=== PATIENT | female | born 1950 | race Caucasian/White ===

== ENCOUNTER 2017-07-09 05:02 | Observation (INO) | payer MEDICARE, MEDICAID ==
[~2017-07-09] VITALS: Ht 177.8 cm; Wt 81.8 kg
[2017-07-09] VITALS (16 sets, daily range): BP systolic 91–171; BP diastolic 31–92
[~2017-07-09 05:02] MED LIST: ALBU8.5H8 INH; ATOR20TA66 PO; GABA-532 PO; LACT-28 PO; MORP30CA16 PO; PANT-47 PO; PER10325T PO; SERT100T10 PO; SPIIN INH
[2017-07-09] MEDS ORDERED: aspirin 81mg tab.chew PO ONE (05:05)
[2017-07-09] MEDS ORDERED: morphine 4 MG/ML inj SYRINge IV ONE (05:15)
[2017-07-09] MEDS ORDERED: ondansetron/PF 4mg/2ml inj IV ONE ×2 (05:15→06:35)
[2017-07-09 05:29] LABS: BASOPHILS % (AUTO) 0.4 % (0-1); EOSINOPHILS # (AUTO) 0.2 X10'3 (0-0.9); EOSINOPHILS % (AUTO) 2.1 % (0-6); HEMATOCRIT 36.8 % (35.0-45.0); HEMOGLOBIN 12.7 g/dl (12.0-16.0); LYMPHOCYTES # (AUTO) 3.2 X10'3 (1.1-4.8); MEAN CORPUSCULAR HGB CONC 34.6 % (33.0-36.5); MEAN CORPUSCULAR VOLUME 86.8 FL (78-98); MEAN PLATELET VOLUME 8.4 FL (7.4-10.4); MONOCYTES # (AUTO) 0.7 X10'3 (0-0.9); MONOCYTES % (AUTO) 7.8 % (2-12); NEUTROPHILS # (AUTO) 4.5 X10'3 (1.8-7.7); NEUTROPHILS % (AUTO) 52.7 % (42-75); PLATELET COUNT 226 X10'3 (140-440); RED BLOOD COUNT 4.24 X10'6 (4.20-5.60); WHITE BLOOD COUNT 8.6 X10'3 (4.5-11.0)
[2017-07-09 05:42] LABS: PARTIAL THROMBOPLASTIN TIME 28 SECONDS (22-32); PROTHROMBIN TIME 10.3 SECONDS (9.0-12.0)
[2017-07-09 05:52] LABS: ALANINE AMINOTRANSFERASE 22 U/L (12-78); ALBUMIN 4.1 G/DL (3.4-5.0); ALBUMIN/GLOBULIN RATIO 1.1 (1.1-1.5); ALKALINE PHOSPHATASE 88 IU/L (46-116); ANION GAP 15 (8-16); ASPARTATE AMINO TRANSFERASE 16 U/L (10-37); BILIRUBIN,TOTAL 0.3 MG/DL (0.1-1.0); BLOOD UREA NITROGEN 16 MG/DL (7-18); BUN/CREATININE RATIO 16.8 (6.6-38.0); CALCIUM 8.9 MG/DL (8.5-10.1); CHLORIDE 104 MMOL/L (99-107); CREATININE 0.95 MG/DL (0.40-0.90); GLUCOSE 133 MG/DL (70-104); MAGNESIUM 1.8 MG/DL (1.5-2.4); POTASSIUM 3.4 MMOL/L (3.5-5.1); SODIUM 141 MMOL/L (135-145); TOTAL CARBON DIOXIDE 22.3 MMOL/L (24-32); TOTAL PROTEIN 7.8 G/DL (6.4-8.2); eGFR 59 ML/MIN
[2017-07-09] MEDS: MORPHINE 2MG in 2ml NS syringe IV PRN ×3 (06:48→09:41)
[2017-07-09] MEDS ORDERED: CLON-527 PO (07:37)
[2017-07-09] MEDS ORDERED: ONDA8TAB6 PO (07:42)
[2017-07-09] MEDS ORDERED: ondansetron/PF 4mg/2ml inj IV PRN (07:55)
[2017-07-09] MEDS ORDERED: magnesium Cl slow-release 64mg tablet PO PRN (07:55)
[2017-07-09] MEDS ORDERED: mag hydrox/Alum hydrox/simeth 30ml oral suspension PO PRN (07:55)
[2017-07-09] MEDS ORDERED: potassium Cl 20 mEq SR tablet PO PRN (07:55)
[2017-07-09] MEDS ORDERED: acetaminophen 325mg tablet PO PRN (07:55)
[2017-07-09] MEDS ORDERED: morphine 4 MG/ML inj SYRINge IV PRN (07:55)
[2017-07-09] MEDS ORDERED: magnesium hydroxide 30ml (MOM) UD suspension PO PRN (07:55)
[2017-07-09] MEDS ORDERED: magnesium 4gm in 100ml NS 100 ML IV PRN (07:55)
[2017-07-09] MEDS ORDERED: magnesium 2GM in 50ml NS 50 ML IV PRN (07:55)
[2017-07-09] MEDS ORDERED: potassium Cl 40MEQ/NS 500ml 500 ML IV PRN ×2 (07:55)
[2017-07-09] MEDS ORDERED: K and/or MAG REPLACEMENT MC SCH (08:00)
[2017-07-09] MEDS: clonazePAM 1mg tablet PO SCH ×5 (08:04→21:07)
[2017-07-09] MEDS ORDERED: non-formulary drug (Ondansetron Hcl (Zofran) 8 MG) PO PRN (08:55)
[2017-07-09] MEDS ORDERED: oxyCODONE/APAP 10/325mg tablet PO PRN (08:55)
[2017-07-09] MEDS ORDERED: albuterol 2.5 MG/3 ML nebule NEB PRN (09:05)
[2017-07-09] MEDS: heparin, porcine 5000 units/ml vial SQ SCH ×2 (09:37→21:06)
[2017-07-09] MEDS: potassium Cl 20 mEq SR tablet PO PRN ×3 (09:38→21:07)
[2017-07-09] MEDS ORDERED: aminophylline 250mg/10ml inj. IV PRN (09:40)
[2017-07-09] MEDS ORDERED: nitroGLYCERIN 0.4mg SUBLingual tab SL PRN (09:40)
[2017-07-09] MEDS ORDERED: regadenoson 0.4mg/5ml syringe IV ONE ×2 (09:40→13:01)
[2017-07-09] MEDS ORDERED: metoprolol tartrate 1mg/ml inj IV PRN (09:40)
[2017-07-09] MEDS ORDERED: aminophylline inj. 10 ML IV ONE (13:00)
[2017-07-09] MEDS ORDERED: IMAT100T8 PO (13:36)
[2017-07-09] MEDS: gabapentin 300mg capsule PO SCH ×2 (14:38→21:07)
[2017-07-09] MEDS: LACTOSE-FREE FOOD 237ML (BOOST) PO SCH ×2 (14:41→19:00)
[2017-07-09] MEDS: ipratropium 0.5 MG/2.5ML nebule IH SCH ×2 (15:31→21:00)
[2017-07-09] MEDS ORDERED: OMEP-50 (20:55)
[2017-07-09] MEDS ORDERED: LEVO50TA8 (20:55)
[2017-07-09] MEDS: morphine ER 30mg tablet PO SCH (21:06)
[2017-07-09] MEDS: carVEDilol 3.125mg tablet PO SCH (21:23)
[2017-07-10 00:25] VITALS: BP 110/70
[2017-07-10] MEDS ORDERED: zolpidem 5mg tablet PO PRN (00:35)
[2017-07-10 02:00] VITALS: BP 110/48
[2017-07-10] MEDS: ipratropium 0.5 MG/2.5ML nebule IH SCH ×2 (02:41→08:00)
[2017-07-10 05:00] VITALS: BP 118/60
[2017-07-10 06:09] LABS: ALANINE AMINOTRANSFERASE 22 U/L (12-78); ALBUMIN 3.7 G/DL (3.4-5.0); ALBUMIN/GLOBULIN RATIO 1.1 (1.1-1.5); ALKALINE PHOSPHATASE 86 IU/L (46-116); ANION GAP 11 (8-16); ASPARTATE AMINO TRANSFERASE 13 U/L (10-37); BILIRUBIN,TOTAL 0.3 MG/DL (0.1-1.0); BLOOD UREA NITROGEN 20 MG/DL (7-18); BUN/CREATININE RATIO 21.7 (6.6-38.0); CALCIUM 8.8 MG/DL (8.5-10.1); CHLORIDE 106 MMOL/L (99-107); CREATININE 0.92 MG/DL (0.40-0.90); GLUCOSE 93 MG/DL (70-104); MAGNESIUM 1.9 MG/DL (1.5-2.4); POTASSIUM 4.4 MMOL/L (3.5-5.1); SODIUM 140 MMOL/L (135-145); TOTAL CARBON DIOXIDE 23.4 MMOL/L (24-32); eGFR 61 ML/MIN
[2017-07-10 06:35] VITALS: BP 120/48
[2017-07-10 07:08] LABS: BASOPHILS % (AUTO) 0.4 % (0-1); EOSINOPHILS # (AUTO) 0.1 X10'3 (0-0.9); EOSINOPHILS % (AUTO) 1.7 % (0-6); HEMATOCRIT 35.9 % (35.0-45.0); HEMOGLOBIN 12.2 g/dl (12.0-16.0); LYMPHOCYTES # (AUTO) 2.6 X10'3 (1.1-4.8); LYMPHOCYTES % (AUTO) 38.4 % (21-51); MEAN CORPUSCULAR HEMOGLOBIN 29.2 PG (27.0-31.0); MEAN CORPUSCULAR HGB CONC 33.9 % (33.0-36.5); MEAN CORPUSCULAR VOLUME 86.1 FL (78-98); MEAN PLATELET VOLUME 9.3 FL (7.4-10.4); MONOCYTES # (AUTO) 0.5 X10'3 (0-0.9); MONOCYTES % (AUTO) 7.8 % (2-12); NEUTROPHILS # (AUTO) 3.5 X10'3 (1.8-7.7); NEUTROPHILS % (AUTO) 51.7 % (42-75); PLATELET COUNT 221 X10'3 (140-440); RED BLOOD COUNT 4.17 X10'6 (4.20-5.60); RED CELL DISTRIBUTION WIDTH 15.1 % (11.5-14.5); WHITE BLOOD COUNT 6.7 X10'3 (4.5-11.0)
[2017-07-10] MEDS: morphine ER 30mg tablet PO SCH (07:26)
[2017-07-10] MEDS: carVEDilol 3.125mg tablet PO SCH (08:00)
[2017-07-10] MEDS ORDERED: pantoprazole 40mg Tablet.DR PO SCH (08:00)
[2017-07-10] MEDS ORDERED: sertraline 50mg tablet PO SCH (08:00)
[2017-07-10] MEDS ORDERED: atorvastatin 20mg tablet PO SCH (08:00)
[2017-07-10] MEDS: clonazePAM 1mg tablet PO SCH ×2 (08:00→08:40)
[2017-07-10] MEDS: gabapentin 300mg capsule PO SCH (08:44)
[2017-07-10] MEDS: heparin, porcine 5000 units/ml vial SQ SCH (08:47)
[2017-07-10] MEDS: LACTOSE-FREE FOOD 237ML (BOOST) PO SCH (08:51)
== END 2017-07-10 10:55 | disposition home or self-care (01) ==
LOC: ER 05:02 → ED HOLD 07:55 → PCU 3S 10:37
PROVIDERS: ADMIT Internal Medicine; ATTEND Internal Medicine
DX: R07.89 Other chest pain (principal); E78.5 Hyperlipidemia, unspecified; C16.9 Malignant neoplasm of stomach, unspecified; F32.9 Major depressive disorder, single episode, unspecified; F41.9 Anxiety disorder, unspecified; G62.9 Polyneuropathy, unspecified; G89.4 Chronic pain syndrome; Z87.891 Personal history of nicotine dependence; Z90.49 Acquired absence of other specified parts of digestive tract; Z90.710 Acquired absence of both cervix and uterus; Z80.9 Family history of malignant neoplasm, unspecified
CPT/HCPCS: 36415; 71045; 78452; 80053; 83735; 83880; 84484; 85025; 85610; 85730; 87070; 93005; 93017; 93306; 94640; 94760; 96372; 96374; 96375; 96376; 99285; A9500; G0378; J0280; J1644; J2270; J2274; J2405

== ENCOUNTER 2018-03-25 07:49 | Inpatient (IN) | payer MEDICARE, MEDICAID ==
[2018-03-25] VITALS (7 sets, daily range): BP systolic 95–137; BP diastolic 64–107
[~2018-03-25] VITALS: Ht 165.1 cm; Wt 80.0 kg
[~2018-03-25 07:49] MED LIST changes: +CLON-527 PO; +IMAT100T8 PO; +LEVO50TA8; +OMEP-50; +ONDA8TAB6 PO
[2018-03-25 08:28] LABS: BASOPHILS % (AUTO) 0.5 % (0-1); EOSINOPHILS # (AUTO) 0.1 X10'3 (0-0.9); EOSINOPHILS % (AUTO) 0.9 % (0-6); HEMATOCRIT 28.6 % (35.0-45.0); HEMOGLOBIN 9.7 g/dl (12.0-16.0); LYMPHOCYTES # (AUTO) 1.4 X10'3 (1.1-4.8); LYMPHOCYTES % (AUTO) 19.8 % (21-51); MEAN CORPUSCULAR HEMOGLOBIN 30.5 PG (27.0-31.0); MEAN CORPUSCULAR HGB CONC 33.9 % (33.0-36.5); MEAN CORPUSCULAR VOLUME 89.9 FL (78-98); MEAN PLATELET VOLUME 8.4 FL (7.4-10.4); MONOCYTES # (AUTO) 0.4 X10'3 (0-0.9); MONOCYTES % (AUTO) 5.7 % (2-12); NEUTROPHILS # (AUTO) 5.1 X10'3 (1.8-7.7); NEUTROPHILS % (AUTO) 73.1 % (42-75); PLATELET COUNT 264 X10'3 (140-440); RED BLOOD COUNT 3.18 X10'6 (4.20-5.60); RED CELL DISTRIBUTION WIDTH 13.7 % (11.5-14.5)
[2018-03-25 08:41] LABS: INR 1.1 INR; PROTHROMBIN TIME 10.7 SECONDS (9.0-12.0)
[2018-03-25 08:42] LABS: ALANINE AMINOTRANSFERASE 21 U/L (12-78); ALBUMIN 3.6 G/DL (3.4-5.0); ALBUMIN/GLOBULIN RATIO 1.1 (1.1-1.5); ALKALINE PHOSPHATASE 79 IU/L (46-116); ANION GAP 10 (8-16); ASPARTATE AMINO TRANSFERASE 22 U/L (10-37); BILIRUBIN,TOTAL 0.4 MG/DL (0.1-1.0); BLOOD UREA NITROGEN 19 MG/DL (7-18); BUN/CREATININE RATIO 18.4 (6.6-38.0); CALCIUM 8.7 MG/DL (8.5-10.1); CHLORIDE 95 MMOL/L (99-107); CREATININE 1.03 MG/DL (0.40-0.90); GLUCOSE 111 MG/DL (70-104); PARTIAL THROMBOPLASTIN TIME 31 SECONDS (22-32); POTASSIUM 4.4 MMOL/L (3.5-5.1); SODIUM 128 MMOL/L (135-145); TOTAL CARBON DIOXIDE 22.7 MMOL/L (24-32); eGFR 54 ML/MIN
[2018-03-25] MEDS ORDERED: clonazePAM 1mg tablet PO ONE (10:15)
[2018-03-25] MEDS ORDERED: oxyCODONE/APAP 10/325mg tablet PO ONE (10:15)
[2018-03-25 10:46] LABS: CLARITY,URINE CLEAR (Clear); COLOR,URINE YELLOW (Yellow); GLUCOSE, URINE NEGATIVE (Neg); KETONES,URINE NEGATIVE (Neg); LEUKOCYTE ESTERASE ,URINE NEGATIVE (Neg); NITRITES, URINE NEGATIVE (Neg); OCCULT BLOOD,URINE MODERATE (Neg); PROTEIN,URINE NEGATIVE (Neg); UROBILINOGEN,URINE 0.2 E.U/dL (0.2-1.0)
[2018-03-25 10:51] LABS: UA COLLECTION TYPE CLN CATCH MIDSTREAM
[2018-03-25 10:53] LABS: BACTERIA,URINE NONE SEEN /HPF (Neg); MUCUS STRANDS NONE SEEN /LPF (Neg); RBC,URINE 0-2 /HPF (0-2); SQUAMOUS EPITHELIAL CELL,UR NONE SEEN /LPF (FEW); WBC,URINE NONE SEEN /HPF (0-4)
[2018-03-25] MEDS ORDERED: fentaNYL/PF 50MCG/1 ML 2ML syringe ONE (11:22)
[2018-03-25] MEDS ORDERED: MIDAZolam 5mg/5ml vial ONE ×2 (11:22→13:00)
[2018-03-25] MEDS ORDERED: LIDOcaine Viscous 15ml cup ONE (11:22)
[2018-03-25] MEDS ORDERED: normal saline 1000ml 1,000 ML IV SCH (11:33)
[2018-03-25] MEDS ORDERED: magnesium 4gm in 100ml NS 100 ML IV PRN (11:35)
[2018-03-25] MEDS ORDERED: potassium Cl 20 mEq SR tablet PO PRN ×2 (11:35)
[2018-03-25] MEDS ORDERED: magnesium Cl slow-release 64mg tablet PO PRN (11:35)
[2018-03-25] MEDS ORDERED: ondansetron/PF 4mg/2ml inj IV PRN (11:35)
[2018-03-25] MEDS ORDERED: potassium Cl 40MEQ/NS 500ml 500 ML IV PRN ×2 (11:35)
[2018-03-25] MEDS ORDERED: morphine 4 MG/ML inj SYRINge IV PRN (11:35)
[2018-03-25] MEDS ORDERED: pantoprazole 40MG/NS 100ML BAG 100 ML IV SCH (11:40)
[2018-03-25] MEDS ORDERED: ipratropium 0.5 MG/2.5ML nebule IH PRN (11:45)
[2018-03-25] MEDS ORDERED: albuterol 2.5 MG/3 ML nebule NEB PRN (11:45)
[2018-03-25] MEDS ORDERED: clonazePAM 1mg tablet PO SCH (13:00)
[2018-03-25] MEDS ORDERED: gabapentin 300mg capsule PO SCH (13:00)
[2018-03-25] MEDS ORDERED: LACTOSE FREE FOOD PO SCH (13:00)
[2018-03-25] MEDS ORDERED: proCHLORperazine 10 MG/2 ml inj ONE (13:08)
[2018-03-25] MEDS ORDERED: epiNEPHrine 0.1mg/ml 10ml syringe ONE (13:30)
[2018-03-25] MEDS ORDERED: morphine ER 30mg tablet PO SCH (20:00)
[2018-03-26] MEDS ORDERED: levoTHYROXINE 25mcg tablet PO SCH (07:00)
[2018-03-26] MEDS ORDERED: atorvastatin 20mg tablet PO SCH (08:00)
[2018-03-26] MEDS ORDERED: K and/or MAG REPLACEMENT MC SCH (08:00)
== END 2018-03-25 15:48 | disposition short-term general hospital (02) | DRG 357 ==
LOC: ER 07:49 → ED HOLD 11:33 → CANBEDREQ 19:35
PROVIDERS: ADMIT Internal Medicine; ATTEND Internal Medicine
PROC: 0W3P8ZZ Control Bleeding in Gastrointestinal Tract, Via Natural or Artificial Opening Endoscopic (ICD-10-PCS; principal; 2018-03-25)
PROC: 3E0G8GC Introduction of Other Therapeutic Substance into Upper GI, Via Natural or Artificial Opening Endoscopic (ICD-10-PCS; 2018-03-25)
PROC: 06L24CZ Occlusion of Gastric Vein with Extraluminal Device, Percutaneous Endoscopic Approach (ICD-10-PCS; 2018-03-25)
DX: K25.4 Chronic or unspecified gastric ulcer with hemorrhage (principal); C16.0 Malignant neoplasm of cardia; E87.1 Hypo-osmolality and hyponatremia; N17.9 Acute kidney failure, unspecified; C16.1 Malignant neoplasm of fundus of stomach; D50.0 Iron deficiency anemia secondary to blood loss (chronic); E03.9 Hypothyroidism, unspecified; E78.5 Hyperlipidemia, unspecified; E86.0 Dehydration; F32.9 Major depressive disorder, single episode, unspecified; J44.9 Chronic obstructive pulmonary disease, unspecified; F41.9 Anxiety disorder, unspecified; G62.9 Polyneuropathy, unspecified; K20.9 Esophagitis, unspecified; F17.200 Nicotine dependence, unspecified, uncomplicated; Z79.899 Other long term (current) drug therapy; Z90.710 Acquired absence of both cervix and uterus; Z90.49 Acquired absence of other specified parts of digestive tract; Z88.5 Allergy status to narcotic agent; Z88.1 Allergy status to other antibiotic agents; Z92.21 Personal history of antineoplastic chemotherapy
CPT/HCPCS: 36415; 43244; 71045; 74176; 80053; 81001; 85025; 85610; 85730; 86885; 86900; 86901; 86920; 93005; 94760; 99152; 99153; 99285; A4620; C9113; G0378; J0171; J0780; J2250; J3010; J7030

== ENCOUNTER 2018-07-03 15:03 | Emergency (ER) | payer MEDICARE, MEDICAID ==
[~2018-07-03] VITALS: Ht 152.4 cm; Wt 68.0 kg
[2018-07-03 15:29] LABS: BASOPHILS # (AUTO) 0.1 X10'3 (0-0.2); BASOPHILS % (AUTO) 0.8 % (0-1); EOSINOPHILS # (AUTO) 0.1 X10'3 (0-0.9); EOSINOPHILS % (AUTO) 1.5 % (0-6); HEMATOCRIT 29.5 % (35.0-45.0); HEMOGLOBIN 9.9 g/dl (12.0-16.0); LYMPHOCYTES # (AUTO) 1.4 X10'3 (1.1-4.8); LYMPHOCYTES % (AUTO) 21.7 % (21-51); MEAN CORPUSCULAR HEMOGLOBIN 30.1 PG (27.0-31.0); MEAN CORPUSCULAR HGB CONC 33.6 g/dL (33.0-36.5); MEAN CORPUSCULAR VOLUME 89.7 FL (78-98); MEAN PLATELET VOLUME 8.4 FL (7.4-10.4); MONOCYTES # (AUTO) 0.5 X10'3 (0-0.9); NEUTROPHILS # (AUTO) 4.5 X10'3 (1.8-7.7); PLATELET COUNT 267 X10'3 (140-440); RED BLOOD COUNT 3.29 X10'6 (4.20-5.60); RED CELL DISTRIBUTION WIDTH 14.6 % (11.5-14.5); WHITE BLOOD COUNT 6.6 X10'3 (4.5-11.0)
[2018-07-03 15:38] LABS: ALANINE AMINOTRANSFERASE 18 U/L (12-78); ALBUMIN 3.4 G/DL (3.4-5.0); ALKALINE PHOSPHATASE 87 IU/L (46-116); ANION GAP 7 (8-16); ASPARTATE AMINO TRANSFERASE 15 U/L (10-37); BILIRUBIN,TOTAL 0.1 MG/DL (0.1-1.0); BLOOD UREA NITROGEN 9 MG/DL (7-18); BUN/CREATININE RATIO 10.1 (6.6-38.0); CALCIUM 8.6 MG/DL (8.5-10.1); CHLORIDE 104 MMOL/L (99-107); CREATININE 0.89 MG/DL (0.40-0.90); GLUCOSE 101 MG/DL (70-104); POTASSIUM 3.8 MMOL/L (3.5-5.1); SODIUM 138 MMOL/L (135-145); TOTAL CARBON DIOXIDE 27.2 MMOL/L (24-32); TOTAL PROTEIN 6.7 G/DL (6.4-8.2); eGFR 63 ML/MIN
[2018-07-03] MEDS ORDERED: normal saline 1000ML IV soln IVB ONE (15:40)
[2018-07-03] MEDS ORDERED: proCHLORperazine 10 MG/2 ml inj IV ONE (15:40)
[2018-07-03 15:53] LABS: LIPASE 121 U/L (73-393)
[2018-07-03 17:14] LABS: CLARITY,URINE SLIGHTLY CLOUDY (Clear); COLOR,URINE YELLOW (Yellow); GLUCOSE, URINE NEGATIVE (Neg); KETONES,URINE NEGATIVE (Neg); LEUKOCYTE ESTERASE ,URINE SMALL (Neg); NITRITES, URINE NEGATIVE (Neg); OCCULT BLOOD,URINE NEGATIVE (Neg); PH,URINE 6.5 (4.8-8.0); PROTEIN,URINE NEGATIVE (Neg); UROBILINOGEN,URINE 0.2 E.U/dL (0.2-1.0)
[2018-07-03 17:15] LABS: UA COLLECTION TYPE CLN CATCH MIDSTREAM
[2018-07-03 17:26] LABS: SQUAMOUS EPITHELIAL CELL,UR FEW /LPF (FEW)
[2018-07-03 17:27] LABS: WBC,URINE 0-4 /HPF (0-4)
[2018-07-03 17:28] LABS: TRANSITIONAL EPI CELLS,URINE MODERATE /HPF
[2018-07-03 17:29] LABS: BACTERIA,URINE NONE SEEN /HPF (Neg); RBC,URINE NONE SEEN /HPF (0-2)
[2018-07-03 17:46] VITALS: BP 109/58
== END 2018-07-03 17:47 | disposition home or self-care (01) ==
LOC: ER 15:03
DX: E86.0 Dehydration (principal); R11.2 Nausea with vomiting, unspecified; R19.7 Diarrhea, unspecified; R10.84 Generalized abdominal pain; R50.9 Fever, unspecified; R07.89 Other chest pain; Z90.49 Acquired absence of other specified parts of digestive tract; Z90.710 Acquired absence of both cervix and uterus; Z98.890 Other specified postprocedural states; Z88.5 Allergy status to narcotic agent; Z88.1 Allergy status to other antibiotic agents; Z79.899 Other long term (current) drug therapy
CPT/HCPCS: 36415; 80053; 81001; 83690; 85025; 87088; 96361; 96374; 99284; J0780; J7030

== ENCOUNTER 2018-11-23 15:30 | Inpatient (IN) | payer MEDICARE, MEDICAID ==
[~2018-11-23] VITALS: Ht 152.4 cm; Wt 54.1 kg
[~2018-11-23 15:30] MED LIST changes: -LEVO50TA8; +LEVO50TA8 PO; +ondansetron 4mg rapidly disintigrating tab PO PRN
--- NOTE | 2018-11-23 15:45 | NUR ---
DR ALMONTE MADE AWARE OF PATIENT'S STATUS AT THIS TIME, MAULIK MICHELLE AT BEDSIDE.
--- NOTE | 2018-11-23 15:51 | NUR ---
PATIENT TO CT AT THIS TIME VIA SISTER VARGAS AT BEDSIDE.
[2018-11-23 16:07] LABS: BASOPHILS % (AUTO) 0.5 % (0-1); EOSINOPHILS # (AUTO) 0.2 X10'3 (0-0.9); EOSINOPHILS % (AUTO) 2.4 % (0-6); HEMATOCRIT 30.1 % (35.0-45.0); HEMOGLOBIN 9.6 g/dl (12.0-16.0); LYMPHOCYTES % (AUTO) 27.7 % (21-51); MEAN CORPUSCULAR HEMOGLOBIN 23.6 PG (27.0-31.0); MEAN CORPUSCULAR HGB CONC 31.9 g/dL (33.0-36.5); MEAN CORPUSCULAR VOLUME 74.2 FL (78-98); MEAN PLATELET VOLUME 7.5 FL (7.4-10.4); MONOCYTES # (AUTO) 0.6 X10'3 (0-0.9); MONOCYTES % (AUTO) 8.7 % (2-12); NEUTROPHILS # (AUTO) 4.3 X10'3 (1.8-7.7); NEUTROPHILS % (AUTO) 60.7 % (42-75); PLATELET COUNT 365 X10'3 (140-440); RED BLOOD COUNT 4.06 X10'6 (4.20-5.60); RED CELL DISTRIBUTION WIDTH 18.7 % (11.5-14.5); WHITE BLOOD COUNT 7.2 X10'3 (4.5-11.0)
[2018-11-23 16:10] LABS: ALANINE AMINOTRANSFERASE 16 U/L (12-78); ALBUMIN/GLOBULIN RATIO 0.8 (1.1-1.5); ALKALINE PHOSPHATASE 103 IU/L (46-116); ANION GAP 7 (8-16); ASPARTATE AMINO TRANSFERASE 15 U/L (10-37); BILIRUBIN,TOTAL 0.1 MG/DL (0.1-1.0); BLOOD UREA NITROGEN 6 MG/DL (7-18); BUN/CREATININE RATIO 8.5 (6.6-38.0); CALCIUM 8.6 MG/DL (8.5-10.1); CHLORIDE 102 MMOL/L (99-107); CREATININE 0.71 MG/DL (0.40-0.90); GLUCOSE 84 MG/DL (70-104); POTASSIUM 4.1 MMOL/L (3.5-5.1); SODIUM 138 MMOL/L (135-145); TOTAL CARBON DIOXIDE 29.3 MMOL/L (24-32); TOTAL PROTEIN 6.8 G/DL (6.4-8.2); eGFR 82 ML/MIN
[2018-11-23] MEDS ORDERED: aspirin 325mg tablet PO ONE (16:15)
[2018-11-23 16:21] LABS: PARTIAL THROMBOPLASTIN TIME 30 SECONDS (22-32)
[2018-11-23 16:36] LABS: ANISOCYTOSIS 2+; ELLIPTOCYTES FEW; HYPOCHROMASIA 1+; MICROCYTOSIS 1+; PLATELET ESTIMATE NORMAL; POLYCHROMASIA 1+; TEAR DROP CELLS FEW
[2018-11-23 16:37] LABS: SCHISTOCYTES FEW; STOMATOCYTES FEW
[2018-11-23] MEDS ORDERED: MAGN400O6 PO (16:57)
[2018-11-23] MEDS ORDERED: FLUT16SP2 BOTHNARES (16:57)
[2018-11-23] MEDS ORDERED: NALO4SPR NAS (16:57)
[2018-11-23] MEDS ORDERED: ONDA8TAB6 PO (16:57)
[2018-11-23] MEDS ORDERED: METO-292 PO (16:57)
[2018-11-23] MEDS ORDERED: SPIR25TA5 PO (16:57)
[2018-11-23] MEDS ORDERED: OMEP40CA13 PO (16:57)
[2018-11-23] MEDS ORDERED: ATOR40TA PO (16:57)
[2018-11-23] MEDS ORDERED: MORP30TA60 PO (16:57)
[2018-11-23] MEDS ORDERED: ALBU18HF2 INH (16:57)
[2018-11-23] MEDS ORDERED: POLY17PO10 PO (16:57)
[2018-11-23] MEDS ORDERED: QUET25TA PO (16:57)
[2018-11-23] MEDS ORDERED: GLUC100017 (16:57)
[2018-11-23] MEDS ORDERED: NICO1PAT41 TD (16:57)
[2018-11-23] MEDS ORDERED: CANN100S (16:57)
[2018-11-23] MEDS ORDERED: DOCU-20 PO (16:57)
[2018-11-23] MEDS ORDERED: MELA3TAB64 PO (16:57)
[2018-11-23] MEDS ORDERED: PSEU60TA22 PO (16:57)
--- NOTE | 2018-11-23 17:22 | NUR ---
Teleneuro consult complete. Neurologist to discuss findings with Dr. Archer.
[2018-11-23 17:34] LABS: CLARITY,URINE CLEAR (Clear); COLOR,URINE YELLOW (Yellow); GLUCOSE, URINE NEGATIVE (Neg); KETONES,URINE NEGATIVE (Neg); LEUKOCYTE ESTERASE ,URINE NEGATIVE (Neg); NITRITES, URINE NEGATIVE (Neg); OCCULT BLOOD,URINE NEGATIVE (Neg); PH,URINE 6.5 (4.8-8.0); PROTEIN,URINE NEGATIVE (Neg); UROBILINOGEN,URINE 0.2 E.U/dL (0.2-1.0)
[2018-11-23 17:41] LABS: UA COLLECTION TYPE STRAIGHT CATH
[2018-11-23 17:46] LABS: URINE AMPHETAMINE SCREEN NEGATIVE (Neg); URINE BARBITUATE SCREEN NEGATIVE (Neg); URINE BENZODIAZEPINES SCREEN POSITIVE (Neg); URINE CANNABINOID SCREEN NEGATIVE (Neg); URINE COCAINE SCREEN NEGATIVE (Neg); URINE METHADONE SCREEN NEGATIVE (Neg); URINE OPIATE SCREEN POSITIVE (Neg); URINE PHENCYCLIDINE SCREEN NEGATIVE (Neg)
[2018-11-23] MEDS ORDERED: potassium Cl 20 mEq SR tablet PO PRN ×2 (18:05)
[2018-11-23] MEDS ORDERED: potassium CL 10mEq/100ml bag 100 ML IV PRN ×2 (18:05)
[2018-11-23] MEDS ORDERED: magnesium hydroxide 30ml (MOM) UD suspension PO PRN (18:05)
[2018-11-23] MEDS ORDERED: morphine 2 MG/ML inj. syringe IV PRN (18:05)
[2018-11-23] MEDS ORDERED: bisacodyl 10mg suppository rectal RC PRN (18:05)
[2018-11-23] MEDS ORDERED: magnesium 2GM in 50ml NS 50 ML IV PRN (18:05)
[2018-11-23] MEDS: K and/or MAG REPLACEMENT MC SCH (18:05)
[2018-11-23] MEDS ORDERED: magnesium Cl slow-release 64mg tablet PO PRN (18:05)
[2018-11-23] MEDS ORDERED: acetaminophen 325mg tablet PO PRN (18:05)
[2018-11-23] MEDS ORDERED: mag hydrox/Alum hydrox/simeth 30ml oral suspension PO PRN (18:05)
[2018-11-23] MEDS ORDERED: magnesium 4gm in 100ml NS 100 ML IV PRN (18:05)
[2018-11-23] MEDS ORDERED: diphenhydrAMINE 25mg capsule PO PRN (18:05)
[2018-11-23] MEDS: normal saline 1000ml 1,000 ML IV SCH (18:17)
[2018-11-23] MEDS: atorvastatin 10mg tablet PO SCH (18:37)
[2018-11-23 19:25] VITALS: BP 97/42
[2018-11-23] MEDS ORDERED: albuterol 2.5 MG/3 ML nebule NEB PRN (19:40)
[2018-11-23 20:00] VITALS: BP 97/42
[2018-11-23] MEDS ORDERED: pantoprazole 40mg Tablet.DR PO SCH (20:00)
[2018-11-23] MEDS: magnesium hydroxide 30ml (MOM) UD suspension PO SCH (20:00)
[2018-11-23] MEDS: docusate sod 100mg capsule PO SCH (20:00)
[2018-11-23] MEDS: spironolactone 25 MG tablet PO SCH (20:00)
[2018-11-23] MEDS: morphine ER 30mg tablet PO SCH (20:00)
[2018-11-23] MEDS ORDERED: NALOXONE HCL 4 MG BOTHNARES PRN (20:30)
[2018-11-23] MEDS: clonazePAM 1mg tablet PO SCH (21:00)
[2018-11-23] MEDS: gabapentin 300mg capsule PO SCH (21:00)
[2018-11-23] MEDS: Melatonin 3mg tablet PO SCH (21:00)
[2018-11-23] MEDS: heparin, porcine 5000 units/ml vial SQ SCH (21:46)
[2018-11-23 22:00] VITALS: BP 81/37
[2018-11-23 23:00] VITALS: BP 99/53
[2018-11-24] MEDS: morphine 2 MG/ML inj. syringe IV PRN ×2 (00:31→04:25)
[2018-11-24] MEDS: ipratropium 0.5 MG/2.5ML nebule IH SCH ×4 (02:00→20:40)
[2018-11-24] MEDS: normal saline 1000ml 1,000 ML IV SCH ×2 (02:51→14:55)
[2018-11-24] MEDS: ondansetron/PF 4mg/2ml inj IV PRN ×2 (04:36→19:04)
[2018-11-24 05:00] VITALS: BP_SYST 116; BP_SYST 120; BP_SYST 90; BP_DIAS 49; BP_DIAS 54; BP_DIAS 60
[2018-11-24 06:14] LABS: BASOPHILS % (AUTO) 0.8 % (0-1); EOSINOPHILS % (AUTO) 0.8 % (0-6); HEMATOCRIT 30.3 % (35.0-45.0); HEMOGLOBIN 9.7 g/dl (12.0-16.0); LYMPHOCYTES # (AUTO) 1.5 X10'3 (1.1-4.8); LYMPHOCYTES % (AUTO) 25.4 % (21-51); MEAN CORPUSCULAR HEMOGLOBIN 23.7 PG (27.0-31.0); MEAN CORPUSCULAR HGB CONC 31.9 g/dL (33.0-36.5); MEAN CORPUSCULAR VOLUME 74.4 FL (78-98); MEAN PLATELET VOLUME 8.5 FL (7.4-10.4); MONOCYTES # (AUTO) 0.5 X10'3 (0-0.9); MONOCYTES % (AUTO) 8.4 % (2-12); NEUTROPHILS # (AUTO) 3.8 X10'3 (1.8-7.7); NEUTROPHILS % (AUTO) 64.6 % (42-75); PLATELET COUNT 378 X10'3 (140-440); RED BLOOD COUNT 4.07 X10'6 (4.20-5.60); RED CELL DISTRIBUTION WIDTH 19.1 % (11.5-14.5); WHITE BLOOD COUNT 5.8 X10'3 (4.5-11.0)
[2018-11-24 06:24] LABS: ALANINE AMINOTRANSFERASE 10 U/L (12-78); ALBUMIN 2.7 G/DL (3.4-5.0); ALBUMIN/GLOBULIN RATIO 0.8 (1.1-1.5); ALKALINE PHOSPHATASE 94 IU/L (46-116); ANION GAP 9 (8-16); ASPARTATE AMINO TRANSFERASE 9 U/L (10-37); BILIRUBIN,TOTAL 0.2 MG/DL (0.1-1.0); BLOOD UREA NITROGEN 7 MG/DL (7-18); BUN/CREATININE RATIO 12.7 (6.6-38.0); CALCIUM 8.5 MG/DL (8.5-10.1); CHLORIDE 108 MMOL/L (99-107); CHOL/HDL RATIO 2.8 (0.00-4.99); CHOLESTEROL 102 MG/DL (0-200); CREATININE 0.55 MG/DL (0.40-0.90); GLUCOSE 105 MG/DL (70-104); HDL CHOLESTEROL 36 MG/DL (35-60); LDL CHOLESTEROL 54 MG/DL (50-100); MAGNESIUM 1.8 MG/DL (1.5-2.4); PHOSPHORUS 3.5 MG/DL (2.3-4.5); POTASSIUM 3.8 MMOL/L (3.5-5.1); SODIUM 142 MMOL/L (135-145); TOTAL CARBON DIOXIDE 25.1 MMOL/L (24-32); TOTAL PROTEIN 6.3 G/DL (6.4-8.2); TRIGLYCERIDES 95 MG/DL (20-135); eGFR > 90 ML/MIN
--- NOTE | 2018-11-24 06:53 | NUR ---
Patient in room ORTHO 4022. I have received report from Alberta WILLINGHAM and had the opportunity to ask questions and assume patient care.
[2018-11-24] MEDS: K and/or MAG REPLACEMENT MC SCH (07:01)
[2018-11-24 07:12] LABS: ANISOCYTOSIS 2+; HYPOCHROMASIA 1+; MICROCYTOSIS 1+; PLATELET ESTIMATE NORMAL
[2018-11-24] MEDS: pantoprazole 40mg Tablet.DR PO SCH (07:50)
[2018-11-24] MEDS: atorvastatin 10mg tablet PO SCH (07:51)
[2018-11-24] MEDS: aspirin 81mg tablet.DR PO SCH (07:52)
[2018-11-24] MEDS: clonazePAM 1mg tablet PO SCH ×3 (07:52→21:05)
[2018-11-24] MEDS: sertraline 50mg tablet PO SCH (07:53)
[2018-11-24] MEDS: heparin, porcine 5000 units/ml vial SQ SCH ×2 (07:54→19:06)
[2018-11-24] MEDS: morphine ER 30mg tablet PO SCH ×2 (07:59→19:07)
[2018-11-24] MEDS: gabapentin 300mg capsule PO SCH ×3 (07:59→21:05)
[2018-11-24 08:00] VITALS: BP_SYST 116; BP_SYST 120; BP_DIAS 49; BP_DIAS 60
[2018-11-24] MEDS ORDERED: non-formulary drug (Atorvastatin Calcium* (Lipitor*) 1 TABLET) PO SCH (08:00)
[2018-11-24] MEDS: polyethylene glycol 3350 17gm powd pack PO SCH (08:00)
[2018-11-24] MEDS: docusate sod 100mg capsule PO SCH ×2 (08:00→19:13)
[2018-11-24] MEDS: spironolactone 25 MG tablet PO SCH ×2 (08:00→19:19)
[2018-11-24] MEDS ORDERED: QUEtiapine 25mg tablet PO SCH ×2 (08:00→09:39)
[2018-11-24] MEDS: fluticasone nasal spray 16GM bottle NS SCH (08:00)
[2018-11-24] MEDS: magnesium hydroxide 30ml (MOM) UD suspension PO SCH ×2 (08:00→19:06)
[2018-11-24 10:00] VITALS: BP 104/41
[2018-11-24] MEDS: oxyCODONE/APAP 10/325mg tablet PO PRN (11:45)
[2018-11-24 13:04] LABS: % IRON SATURATION 3 % (11-46); IRON 10 UG/DL (49-151); TOTAL IRON BINDING CAPACITY 291 UG/DL (259-388)
[2018-11-24 13:20] LABS: FERRITIN 8 NG/ML (8-252)
[2018-11-24] MEDS: lactose-reduced food (Ensure Enlive) - 237ml bottle PO SCH ×2 (13:47→18:12)
[2018-11-24 18:00] VITALS: BP 89/40
--- NOTE | 2018-11-24 18:18 | NUR ---
Problems reprioritized. Patient report given, questions answered & plan of care reviewed with Yudi WILLINGHAM.
--- NOTE | 2018-11-24 18:19 | NUR ---
Patient in room ORTHO 4022. I have received report from Lux WILLINGHAM and had the opportunity to ask questions and assume patient care.
[2018-11-24 19:19] VITALS: BP 85/41
[2018-11-24] MEDS: Melatonin 3mg tablet PO SCH (21:05)
[2018-11-24 22:00] VITALS: BP_SYST 92; BP_SYST 98; BP_DIAS 44; BP_DIAS 45
[2018-11-25] MEDS: normal saline 1000ml 1,000 ML IV SCH ×2 (01:09→13:57)
[2018-11-25 02:00] VITALS: BP 84/41
[2018-11-25] MEDS: ipratropium 0.5 MG/2.5ML nebule IH SCH ×3 (03:04→14:53)
[2018-11-25] MEDS: oxyCODONE/APAP 10/325mg tablet PO PRN ×2 (03:17→13:34)
[2018-11-25 05:00] VITALS: BP 86/25
[2018-11-25 05:33] LABS: BASOPHILS % (AUTO) 0.7 % (0-1); EOSINOPHILS # (AUTO) 0.2 X10'3 (0-0.9); EOSINOPHILS % (AUTO) 2.3 % (0-6); HEMATOCRIT 26.6 % (35.0-45.0); HEMOGLOBIN 8.2 g/dl (12.0-16.0); LYMPHOCYTES # (AUTO) 2.2 X10'3 (1.1-4.8); LYMPHOCYTES % (AUTO) 33.2 % (21-51); MEAN CORPUSCULAR HEMOGLOBIN 23.1 PG (27.0-31.0); MEAN CORPUSCULAR HGB CONC 30.8 g/dL (33.0-36.5); MEAN PLATELET VOLUME 8.2 FL (7.4-10.4); MONOCYTES # (AUTO) 0.5 X10'3 (0-0.9); NEUTROPHILS # (AUTO) 3.8 X10'3 (1.8-7.7); NEUTROPHILS % (AUTO) 55.8 % (42-75); PLATELET COUNT 348 X10'3 (140-440); RED BLOOD COUNT 3.54 X10'6 (4.20-5.60); RED CELL DISTRIBUTION WIDTH 18.8 % (11.5-14.5); WHITE BLOOD COUNT 6.8 X10'3 (4.5-11.0)
[2018-11-25 05:57] LABS: ALANINE AMINOTRANSFERASE 11 U/L (12-78); ALBUMIN 2.2 G/DL (3.4-5.0); ALBUMIN/GLOBULIN RATIO 0.7 (1.1-1.5); ALKALINE PHOSPHATASE 73 IU/L (46-116); ANION GAP 8 (8-16); ASPARTATE AMINO TRANSFERASE 13 U/L (10-37); BILIRUBIN,TOTAL 0.1 MG/DL (0.1-1.0); BLOOD UREA NITROGEN 8 MG/DL (7-18); BUN/CREATININE RATIO 12.5 (6.6-38.0); CALCIUM 7.5 MG/DL (8.5-10.1); CHLORIDE 112 MMOL/L (99-107); CREATININE 0.64 MG/DL (0.40-0.90); GLUCOSE 85 MG/DL (70-104); MAGNESIUM 1.7 MG/DL (1.5-2.4); PHOSPHORUS 3.2 MG/DL (2.3-4.5); POTASSIUM 3.6 MMOL/L (3.5-5.1); SODIUM 145 MMOL/L (135-145); TOTAL CARBON DIOXIDE 25.5 MMOL/L (24-32); TOTAL PROTEIN 5.4 G/DL (6.4-8.2); eGFR > 90 ML/MIN
--- NOTE | 2018-11-25 06:37 | NUR ---
Problems reprioritized. Patient report given, questions answered & plan of care reviewed with Veto WILLINGHAM.
--- NOTE | 2018-11-25 06:40 | NUR ---
Patient in room ORTHO 4022. I have received report from Yudi WILLINGHAM and had the opportunity to ask questions and assume patient care.
[2018-11-25] MEDS: polyethylene glycol 3350 17gm powd pack PO SCH (08:00)
[2018-11-25] MEDS: fluticasone nasal spray 16GM bottle NS SCH (08:00)
[2018-11-25] MEDS: spironolactone 25 MG tablet PO SCH (08:00)
[2018-11-25] MEDS: magnesium hydroxide 30ml (MOM) UD suspension PO SCH (08:00)
[2018-11-25] MEDS: lactose-reduced food (Ensure Enlive) - 237ml bottle PO SCH ×2 (08:00→13:00)
[2018-11-25] MEDS: K and/or MAG REPLACEMENT MC SCH (08:00)
[2018-11-25] MEDS: morphine ER 30mg tablet PO SCH (08:29)
[2018-11-25] MEDS: clonazePAM 1mg tablet PO SCH ×2 (08:29→13:34)
[2018-11-25] MEDS: pantoprazole 40mg Tablet.DR PO SCH (08:29)
[2018-11-25] MEDS: heparin, porcine 5000 units/ml vial SQ SCH (08:29)
[2018-11-25 08:30] LABS: ANISOCYTOSIS 2+; MICROCYTOSIS 1+; PLATELET ESTIMATE NORMAL; SCHISTOCYTES FEW
[2018-11-25] MEDS: docusate sod 100mg capsule PO SCH (08:30)
[2018-11-25] MEDS: atorvastatin 10mg tablet PO SCH (08:30)
[2018-11-25] MEDS: gabapentin 300mg capsule PO SCH ×2 (08:30→13:34)
[2018-11-25 08:31] LABS: LARGE PLATELETS FEW
[2018-11-25] MEDS: sertraline 50mg tablet PO SCH (08:31)
[2018-11-25] MEDS: aspirin 81mg tablet.DR PO SCH (08:31)
--- NOTE | 2018-11-25 09:42 | NUR ---
PAGER ID: [phone] MESSAGE: Re: Christina Johnson, Room: 3022. Spoke with technical administrative assistant and she recommends MRI of head w/ lola after looking at previous head MRI. -[facility] [phone] Dr. Brown paged concerning MRI techs recommendation of doing MRI of head w/ Lola.
[2018-11-25 10:00] VITALS: BP 105/40
[2018-11-25] MEDS ORDERED: normal saline 1000ml 1,000 ML IV ONE (10:10)
[2018-11-25] MEDS ORDERED: iohexol 300mg/ml 100ml inj. ONE (11:07)
[2018-11-25] MEDS ORDERED: ASPI-1071 PO (13:55)
[2018-11-25] MEDS ORDERED: FERR325T28 PO (13:55)
--- NOTE | 2018-11-25 16:45 | NUR ---
pt DC'd home with sister. IV removed, canula intact. Tele-box removed and returned to tele-tech. Pt Stable upon DC. DC paperwork gone over with Pt and sister. Allowed Pt asn sister to ask questions and then answer them. New prescriptions were delivered to Pt [facility] bedside delivery. Pt and sister will make follow up appt with Dr. Pina at [facility] after DC. Pt's belongings gathered and sent with Pt. Pt wheeled down to lobby in wheel chair by staff. Pt left with sister in private vehicle for home.
[2018-11-26] MEDS ORDERED: gadopentetate dimeglumine 5 mmol/10ml vial IV ONE (17:24)
== END 2018-11-25 16:47 | disposition home health service (06) | DRG 65 ==
LOC: ER 15:30 → ORTHO 4S 19:06 → CMPBEDREQ 11-24 19:35
PROVIDERS: ADMIT Family Medicine; ATTEND Family Medicine
DX: I63.9 Cerebral infarction, unspecified (principal); E44.0 Moderate protein-calorie malnutrition; G81.91 Hemiplegia, unspecified affecting right dominant side; D50.9 Iron deficiency anemia, unspecified; E03.9 Hypothyroidism, unspecified; E78.5 Hyperlipidemia, unspecified; F12.90 Cannabis use, unspecified, uncomplicated; F32.9 Major depressive disorder, single episode, unspecified; F41.9 Anxiety disorder, unspecified; F17.210 Nicotine dependence, cigarettes, uncomplicated; J44.9 Chronic obstructive pulmonary disease, unspecified; K21.9 Gastro-esophageal reflux disease without esophagitis; Z79.82 Long term (current) use of aspirin; Z85.028 Personal history of other malignant neoplasm of stomach; Z90.710 Acquired absence of both cervix and uterus; Z68.23 Body mass index [BMI] 23.0-23.9, adult; Z88.5 Allergy status to narcotic agent; Z88.1 Allergy status to other antibiotic agents; Z90.49 Acquired absence of other specified parts of digestive tract; Z71.6 Tobacco abuse counseling
CPT/HCPCS: 36415; 70450; 70544; 70551; 70552; 71045; 80053; 80061; 80305; 80320; 81003; 82140; 82728; 83036; 83540; 83550; 83735; 84100; 84443; 85025; 85610; 85730; 87081; 92508; 92616; 93005; 93306; 93880; 94640; 94760; 97116; 97162; 97530; 99285; A9579; G0378; J1644; J2270; J2405; J7030; Q9967

== ENCOUNTER 2019-01-20 19:00 | Emergency (ER) | payer MEDICARE, MEDICAID ==
[~2019-01-20] VITALS: Ht 152.4 cm; Wt 50.9 kg
[~2019-01-20 19:00] MED LIST changes: +ALBU18HF2 INH; -ALBU8.5H8 INH; +ASPI-1071 PO; -ATOR20TA66 PO; +ATOR40TA PO; +DOCU-20 PO; +FLUT16SP2 BOTHNARES; +GLUC100017; -LACT-28 PO; +MAGN400O6 PO; +MELA3TAB64 PO; +METO-292 PO; -MORP30CA16 PO; +MORP30TA60 PO; +NALO4SPR NAS; -OMEP-50; +OMEP40CA13 PO; -PANT-47 PO; +POLY17PO10 PO; +PSEU60TA22 PO; +QUET25TA PO; +SPIR25TA5 PO; -ondansetron 4mg rapidly disintigrating tab PO PRN
[2019-01-20 19:45] LABS: BASOPHILS % (AUTO) 0.8 % (0-1); EOSINOPHILS # (AUTO) 0.1 X10'3 (0-0.9); EOSINOPHILS % (AUTO) 2.4 % (0-6); HEMATOCRIT 39.8 % (35.0-45.0); LYMPHOCYTES # (AUTO) 1.4 X10'3 (1.1-4.8); LYMPHOCYTES % (AUTO) 25.1 % (21-51); MEAN CORPUSCULAR HEMOGLOBIN 25.9 PG (27.0-31.0); MEAN CORPUSCULAR HGB CONC 32.7 g/dL (33.0-36.5); MEAN CORPUSCULAR VOLUME 79.2 FL (78-98); MEAN PLATELET VOLUME 8.2 FL (7.4-10.4); MONOCYTES # (AUTO) 0.5 X10'3 (0-0.9); MONOCYTES % (AUTO) 8.6 % (2-12); NEUTROPHILS # (AUTO) 3.6 X10'3 (1.8-7.7); NEUTROPHILS % (AUTO) 63.1 % (42-75); PLATELET COUNT 264 X10'3 (140-440); RED BLOOD COUNT 5.03 X10'6 (4.20-5.60); RED CELL DISTRIBUTION WIDTH 23.6 % (11.5-14.5); WHITE BLOOD COUNT 5.7 X10'3 (4.5-11.0)
--- NOTE | 2019-01-20 19:51 | NUR ---
Patient is falling asleep mid-sentence. She states that she took her morphine tablet just prior to arrival, but that she vomited the tablet back up completely intact.
[2019-01-20 19:57] LABS: ALANINE AMINOTRANSFERASE 15 U/L (12-78); ALBUMIN 3.1 G/DL (3.4-5.0); ALBUMIN/GLOBULIN RATIO 0.8 (1.1-1.5); ALKALINE PHOSPHATASE 96 IU/L (46-116); ANION GAP 6 (8-16); ASPARTATE AMINO TRANSFERASE 17 U/L (10-37); BILIRUBIN,TOTAL 0.1 MG/DL (0.1-1.0); BLOOD UREA NITROGEN 5 MG/DL (7-18); BUN/CREATININE RATIO 6.4 (6.6-38.0); CALCIUM 8.8 MG/DL (8.5-10.1); CHLORIDE 102 MMOL/L (99-107); CREATININE 0.78 MG/DL (0.40-0.90); GLUCOSE 100 MG/DL (70-104); LIPASE 97 U/L (73-393); POTASSIUM 3.6 MMOL/L (3.5-5.1); SODIUM 138 MMOL/L (135-145); TOTAL CARBON DIOXIDE 29.9 MMOL/L (24-32); eGFR 74 ML/MIN
[2019-01-20] MEDS ORDERED: normal saline 1000ml 1,000 ML IV ONE ×2 (20:25→21:15)
[2019-01-20] MEDS ORDERED: proCHLORperazine 10 MG/2 ml inj IV ONE (20:25)
[2019-01-20] MEDS ORDERED: diphenhydrAMINE 50 mg/ml inj IV ONE (20:25)
[2019-01-20 20:44] LABS: ANISOCYTOSIS 3+; MICROCYTOSIS 1+; PLATELET ESTIMATE NORMAL
--- NOTE | 2019-01-20 21:13 | NUR ---
Patient continues to sleep while sitting up and head bobbed down. When she is awake she complains of pain, but quickly falls back to sleep.
[2019-01-20 22:47] VITALS: BP 114/49
== END 2019-01-20 23:06 | disposition home or self-care (01) ==
LOC: ER 19:00
DX: R10.13 Epigastric pain (principal); R11.2 Nausea with vomiting, unspecified; Z90.49 Acquired absence of other specified parts of digestive tract; Z90.710 Acquired absence of both cervix and uterus; Z98.890 Other specified postprocedural states; Z88.5 Allergy status to narcotic agent; Z88.1 Allergy status to other antibiotic agents; Z79.82 Long term (current) use of aspirin; Z79.899 Other long term (current) drug therapy
CPT/HCPCS: 36415; 71046; 80053; 83690; 85025; 85610; 96361; 96374; 96375; 99284; J0780; J1200; J7030

== ENCOUNTER 2019-02-07 19:21 | Emergency (ER) | payer MEDICARE, MEDICAID ==
[~2019-02-07] VITALS: Ht 152.4 cm; Wt 47.0 kg
[2019-02-07 19:52] LABS: BASOPHILS # (AUTO) 0.1 X10'3 (0-0.2); BASOPHILS % (AUTO) 0.7 % (0-1); EOSINOPHILS # (AUTO) 0.2 X10'3 (0-0.9); EOSINOPHILS % (AUTO) 2.3 % (0-6); HEMATOCRIT 38.4 % (35.0-45.0); HEMOGLOBIN 12.6 g/dl (12.0-16.0); LYMPHOCYTES % (AUTO) 19.9 % (21-51); MEAN CORPUSCULAR HEMOGLOBIN 26.5 PG (27.0-31.0); MEAN CORPUSCULAR HGB CONC 32.8 g/dL (33.0-36.5); MEAN CORPUSCULAR VOLUME 80.7 FL (78-98); MEAN PLATELET VOLUME 7.9 FL (7.4-10.4); MONOCYTES # (AUTO) 0.9 X10'3 (0-0.9); MONOCYTES % (AUTO) 9.2 % (2-12); NEUTROPHILS # (AUTO) 6.7 X10'3 (1.8-7.7); NEUTROPHILS % (AUTO) 67.9 % (42-75); PLATELET COUNT 300 X10'3 (140-440); RED BLOOD COUNT 4.76 X10'6 (4.20-5.60); RED CELL DISTRIBUTION WIDTH 22.7 % (11.5-14.5); WHITE BLOOD COUNT 9.9 X10'3 (4.5-11.0)
[2019-02-07 19:58] LABS: ALANINE AMINOTRANSFERASE 13 U/L (12-78); ALBUMIN 2.8 G/DL (3.4-5.0); ALBUMIN/GLOBULIN RATIO 0.7 (1.1-1.5); ALKALINE PHOSPHATASE 96 IU/L (46-116); ANION GAP 5 (8-16); ASPARTATE AMINO TRANSFERASE 16 U/L (10-37); BILIRUBIN,TOTAL 0.1 MG/DL (0.1-1.0); BLOOD UREA NITROGEN 8 MG/DL (7-18); BUN/CREATININE RATIO 11.1 (6.6-38.0); CALCIUM 8.5 MG/DL (8.5-10.1); CHLORIDE 100 MMOL/L (99-107); CREATININE 0.72 MG/DL (0.40-0.90); GLUCOSE 75 MG/DL (70-104); LIPASE 84 U/L (73-393); POTASSIUM 3.7 MMOL/L (3.5-5.1); SODIUM 134 MMOL/L (135-145); TOTAL CARBON DIOXIDE 28.6 MMOL/L (24-32); eGFR 81 ML/MIN
[2019-02-07] MEDS ORDERED: normal saline 1000ML IV soln IVB ONE (20:30)
[2019-02-07] MEDS ORDERED: oxyCODONE/APAP 10/325mg tablet PO ONE (22:40)
[2019-02-07 22:52] LABS: CLARITY,URINE CLEAR (Clear); COLOR,URINE YELLOW (Yellow); GLUCOSE, URINE NEGATIVE (Neg); KETONES,URINE NEGATIVE (Neg); LEUKOCYTE ESTERASE ,URINE SMALL (Neg); NITRITES, URINE NEGATIVE (Neg); OCCULT BLOOD,URINE NEGATIVE (Neg); PROTEIN,URINE NEGATIVE (Neg); UROBILINOGEN,URINE 0.2 E.U/dL (0.2-1.0)
[2019-02-07 22:53] LABS: UA COLLECTION TYPE CLN CATCH MIDSTREAM
[2019-02-07 22:59] VITALS: BP 115/65
[2019-02-07 23:02] LABS: BACTERIA,URINE FEW /HPF (Neg); MUCUS STRANDS NONE SEEN /LPF (Neg); RBC,URINE NONE SEEN /HPF (0-2); SQUAMOUS EPITHELIAL CELL,UR FEW /LPF (FEW)
[2019-02-07] MEDS ORDERED: CEPH500C5 PO (23:10)
[2019-02-07] MEDS ORDERED: ONDA4TAB12 PO (23:10)
[2019-02-07] MEDS ORDERED: cephalexin 250mg capsule PO ONE (23:10)
[2019-02-07 23:16] LABS: ANISOCYTOSIS 3+; PLATELET ESTIMATE NORMAL; TARGET CELLS FEW
== END 2019-02-07 23:32 | disposition home or self-care (01) ==
LOC: ER 19:21
DX: E86.0 Dehydration (principal); N39.0 Urinary tract infection, site not specified; Z90.49 Acquired absence of other specified parts of digestive tract; Z90.710 Acquired absence of both cervix and uterus; Z98.890 Other specified postprocedural states; Z88.5 Allergy status to narcotic agent; Z88.1 Allergy status to other antibiotic agents; Z79.82 Long term (current) use of aspirin; Z79.2 Long term (current) use of antibiotics; Z79.899 Other long term (current) drug therapy
CPT/HCPCS: 36415; 80053; 81001; 83690; 85025; 87088; 93005; 96360; 96361; 99284; J7030

== ENCOUNTER 2019-02-17 09:57 | Emergency (ER) | payer MEDICARE, MEDICAID ==
[~2019-02-17] VITALS: Ht 154.9 cm; Wt 50.0 kg
[~2019-02-17 09:57] MED LIST changes: -ATOR40TA PO; +CEPH500C5 PO; -DOCU-20 PO; -IMAT100T8 PO; +ONDA4TAB12 PO; -POLY17PO10 PO
[2019-02-17 10:36] LABS: BASOPHILS # (AUTO) 0.1 X10'3 (0-0.2); BASOPHILS % (AUTO) 1.1 % (0-1); EOSINOPHILS # (AUTO) 0.1 X10'3 (0-0.9); EOSINOPHILS % (AUTO) 0.9 % (0-6); HEMATOCRIT 39.7 % (35.0-45.0); HEMOGLOBIN 13.2 g/dl (12.0-16.0); LYMPHOCYTES # (AUTO) 1.6 X10'3 (1.1-4.8); LYMPHOCYTES % (AUTO) 21.5 % (21-51); MEAN CORPUSCULAR HEMOGLOBIN 27.1 PG (27.0-31.0); MEAN CORPUSCULAR HGB CONC 33.3 g/dL (33.0-36.5); MEAN CORPUSCULAR VOLUME 81.3 FL (78-98); MEAN PLATELET VOLUME 8.2 FL (7.4-10.4); MONOCYTES # (AUTO) 0.5 X10'3 (0-0.9); MONOCYTES % (AUTO) 6.9 % (2-12); NEUTROPHILS # (AUTO) 5.2 X10'3 (1.8-7.7); NEUTROPHILS % (AUTO) 69.6 % (42-75); PLATELET COUNT 286 X10'3 (140-440); RED BLOOD COUNT 4.89 X10'6 (4.20-5.60); RED CELL DISTRIBUTION WIDTH 20.6 % (11.5-14.5); WHITE BLOOD COUNT 7.5 X10'3 (4.5-11.0)
[2019-02-17 10:51] LABS: ALANINE AMINOTRANSFERASE 14 U/L (12-78); ALBUMIN/GLOBULIN RATIO 0.8 (1.1-1.5); ALKALINE PHOSPHATASE 88 IU/L (46-116); ANION GAP 10 (8-16); ASPARTATE AMINO TRANSFERASE 14 U/L (10-37); BILIRUBIN,TOTAL 0.2 MG/DL (0.1-1.0); BLOOD UREA NITROGEN 8 MG/DL (7-18); BUN/CREATININE RATIO 12.9 (6.6-38.0); CALCIUM 9.1 MG/DL (8.5-10.1); CHLORIDE 101 MMOL/L (99-107); CREATININE 0.62 MG/DL (0.40-0.90); GLUCOSE 97 MG/DL (70-104); LIPASE 74 U/L (73-393); POTASSIUM 4.3 MMOL/L (3.5-5.1); SODIUM 137 MMOL/L (135-145); TOTAL CARBON DIOXIDE 25.8 MMOL/L (24-32); TOTAL PROTEIN 6.9 G/DL (6.4-8.2); eGFR > 90 ML/MIN
[2019-02-17 10:57] LABS: ANISOCYTOSIS 3+; MICROCYTOSIS 1+; PLATELET ESTIMATE NORMAL
[2019-02-17] MEDS ORDERED: normal saline 1000ML IV soln IVB ONE (11:15)
[2019-02-17] MEDS ORDERED: morphine 4 MG/ML inj SYRINge IV PRN (11:15)
[2019-02-17] MEDS ORDERED: ondansetron/PF 4mg/2ml inj IV ONE (11:15)
[2019-02-17 13:20] LABS: CLARITY,URINE CLEAR (Clear); COLOR,URINE YELLOW (Yellow); GLUCOSE, URINE NEGATIVE (Neg); KETONES,URINE NEGATIVE (Neg); LEUKOCYTE ESTERASE ,URINE NEGATIVE (Neg); NITRITES, URINE NEGATIVE (Neg); OCCULT BLOOD,URINE NEGATIVE (Neg); PROTEIN,URINE NEGATIVE (Neg); UROBILINOGEN,URINE 0.2 E.U/dL (0.2-1.0)
[2019-02-17 13:26] LABS: UA COLLECTION TYPE CLN CATCH MIDSTREAM
[2019-02-17 13:36] VITALS: BP 112/74
== END 2019-02-17 13:38 | disposition home or self-care (01) ==
LOC: ER 09:58
DX: E86.0 Dehydration (principal); Z98.890 Other specified postprocedural states; Z88.1 Allergy status to other antibiotic agents; Z88.5 Allergy status to narcotic agent; Z79.2 Long term (current) use of antibiotics; Z79.82 Long term (current) use of aspirin; Z79.899 Other long term (current) drug therapy; Z90.89 Acquired absence of other organs; Z90.710 Acquired absence of both cervix and uterus
CPT/HCPCS: 36415; 80053; 81003; 83690; 85025; 96361; 96374; 96375; 99284; J2270; J2405

== ENCOUNTER 2019-03-19 08:46 | Day surgery (SDC) | payer MEDICARE, MEDICAID ==
[~2019-03-19] VITALS: Ht 152.4 cm; Wt 46.3 kg
[2019-03-19] VITALS (18 sets, daily range): BP systolic 95–123; BP diastolic 52–78
[2019-03-19] MEDS ORDERED: normal saline 1000ml 1,000 ML IV SCH (09:10)
[2019-03-19] MEDS ORDERED: ATOR40TA7 PO (09:35)
[2019-03-19] MEDS ORDERED: QUET25TA PO (09:35)
[2019-03-19] MEDS ORDERED: MULT-1074 PO (09:35)
[2019-03-19] MEDS ORDERED: IMAT100T8 PO (09:35)
[2019-03-19 09:49] LABS: BASOPHILS % (AUTO) 0.5 % (0-1); EOSINOPHILS % (AUTO) 0.3 % (0-6); HEMATOCRIT 38.3 % (35.0-45.0); LYMPHOCYTES % (AUTO) 11.1 % (21-51); MEAN CORPUSCULAR HEMOGLOBIN 28.3 PG (27.0-31.0); MEAN CORPUSCULAR VOLUME 83.4 FL (78-98); MEAN PLATELET VOLUME 8.4 FL (7.4-10.4); MONOCYTES # (AUTO) 0.2 X10'3 (0-0.9); MONOCYTES % (AUTO) 2.1 % (2-12); PLATELET COUNT 241 X10'3 (140-440); RED BLOOD COUNT 4.59 X10'6 (4.20-5.60); RED CELL DISTRIBUTION WIDTH 15.2 % (11.5-14.5); WHITE BLOOD COUNT 9.3 X10'3 (4.5-11.0)
[2019-03-19 09:59] LABS: ALBUMIN 3.1 G/DL (3.4-5.0); ANION GAP 7 (8-16); BLOOD UREA NITROGEN 8 MG/DL (7-18); BUN/CREATININE RATIO 10.5 (6.6-38.0); CALCIUM 8.2 MG/DL (8.5-10.1); CHLORIDE 102 MMOL/L (99-107); CREATININE 0.76 MG/DL (0.40-0.90); GLUCOSE 135 MG/DL (70-104); POTASSIUM 3.4 MMOL/L (3.5-5.1); SODIUM 135 MMOL/L (135-145); TOTAL CARBON DIOXIDE 26.5 MMOL/L (24-32); eGFR 76 ML/MIN
[2019-03-19] MEDS ORDERED: fentaNYL/PF 50MCG/1 ML 2ML syringe ONE (10:00)
[2019-03-19] MEDS ORDERED: midazolam 2 mg/2 ml injection ONE (10:00)
[2019-03-19] MEDS ORDERED: fentaNYL/PF 50MCG/1 ML 2ML syringe IV PRN (10:05)
[2019-03-19] MEDS ORDERED: LIDOcaine 1%/PF 5ML 10 MG/ML VIAL SQ ONE (10:05)
[2019-03-19] MEDS ORDERED: midazolam 2 mg/2 ml injection IV PRN (10:05)
[2019-03-19] MEDS ORDERED: LIDOcaine 1% (10mg/ml) 2ml vial SQ ONE (10:30)
[2019-03-19] MEDS ORDERED: ondansetron/PF 4mg/2ml inj ONE (10:48)
[2019-03-19] MEDS ORDERED: morphine 2 MG/ML inj. syringe IV ONE (12:05)
== END 2019-03-19 14:30 | disposition home or self-care (01) ==
LOC: SSTAY O 08:46
PROVIDERS: ATTEND Radiology Diagnostic Radiology
DX: C49.A9 Gastrointestinal stromal tumor of other sites (principal); Z90.49 Acquired absence of other specified parts of digestive tract; Z98.890 Other specified postprocedural states; Z90.710 Acquired absence of both cervix and uterus; Z88.5 Allergy status to narcotic agent; Z88.1 Allergy status to other antibiotic agents; Z79.899 Other long term (current) drug therapy
CPT/HCPCS: 36415; 47000; 77012; 80048; 85025; 85610; 99152; 99153; J2250; J2270; J2405; J3010; J7030

== ENCOUNTER 2019-04-02 23:48 | Emergency (ER) | payer MEDICARE, MEDICAID ==
[~2019-04-02] VITALS: Ht 152.4 cm; Wt 42.3 kg
[~2019-04-02 23:48] MED LIST changes: -ASPI-1071 PO; +ATOR40TA7 PO; -CEPH500C5 PO; +IMAT100T8 PO; -MAGN400O6 PO; -MELA3TAB64 PO; +MULT-1074 PO; -ONDA8TAB6 PO; -SPIIN INH
--- NOTE | 2019-04-03 01:04 | NUR ---
labs have been delayed secondary to pt being a hard IV stick. Veins are blowing. Multiple RN's have tried. We have now established IV access but it will not draw. Phlebotomy at bedside for attempt.
--- NOTE | 2019-04-03 01:10 | NUR ---
PT HAD MULTIPLE IV STICKS BY DIFFERENT RN'S. WAS NOT ABLE TO DRAW LABS YET. PT NOW HAS ONE IV WHICH HAS KVO FLUIDS RUNNING. LEAD SOFTWARE ARCHITECT ATTEMPTING DRAW LABS AT THIS TIME.
[2019-04-03 01:29] VITALS: BP 116/58
[2019-04-03 01:34] LABS: BASOPHILS # (AUTO) 0.1 X10'3 (0-0.2); BASOPHILS % (AUTO) 1.2 % (0-1); EOSINOPHILS # (AUTO) 0.2 X10'3 (0-0.9); HEMATOCRIT 40.4 % (35.0-45.0); HEMOGLOBIN 13.6 g/dl (12.0-16.0); LYMPHOCYTES % (AUTO) 37.2 % (21-51); MEAN CORPUSCULAR HEMOGLOBIN 28.6 PG (27.0-31.0); MEAN CORPUSCULAR HGB CONC 33.6 g/dL (33.0-36.5); MEAN CORPUSCULAR VOLUME 85.1 FL (78-98); MEAN PLATELET VOLUME 8.1 FL (7.4-10.4); MONOCYTES # (AUTO) 0.6 X10'3 (0-0.9); MONOCYTES % (AUTO) 7.6 % (2-12); NEUTROPHILS # (AUTO) 4.3 X10'3 (1.8-7.7); PLATELET COUNT 243 X10'3 (140-440); RED BLOOD COUNT 4.74 X10'6 (4.20-5.60); RED CELL DISTRIBUTION WIDTH 16.7 % (11.5-14.5); WHITE BLOOD COUNT 8.2 X10'3 (4.5-11.0)
[2019-04-03] MEDS ORDERED: clonazePAM 1mg tablet PO ONE (01:40)
[2019-04-03] MEDS ORDERED: fentaNYL/PF 50MCG/1 ML 2ML syringe IV ONE (01:40)
[2019-04-03 01:48] LABS: ALANINE AMINOTRANSFERASE 25 U/L (12-78); ALBUMIN 3.4 G/DL (3.4-5.0); ALBUMIN/GLOBULIN RATIO 1.1 (1.1-1.5); ALKALINE PHOSPHATASE 91 IU/L (46-116); ANION GAP 4 (8-16); ASPARTATE AMINO TRANSFERASE 20 U/L (10-37); BILIRUBIN,TOTAL 0.3 MG/DL (0.1-1.0); BLOOD UREA NITROGEN 7 MG/DL (7-18); BUN/CREATININE RATIO 10.4 (6.6-38.0); CALCIUM 8.6 MG/DL (8.5-10.1); CHLORIDE 105 MMOL/L (99-107); CREATININE 0.67 MG/DL (0.40-0.90); GLUCOSE 84 MG/DL (70-104); POTASSIUM 3.2 MMOL/L (3.5-5.1); SODIUM 140 MMOL/L (135-145); TOTAL CARBON DIOXIDE 30.6 MMOL/L (24-32); TOTAL PROTEIN 6.5 G/DL (6.4-8.2); eGFR 88 ML/MIN
[2019-04-03 01:58] LABS: MAGNESIUM 1.9 MG/DL (1.5-2.4)
== END 2019-04-03 02:39 | disposition home or self-care (01) ==
LOC: ER 23:49
DX: R00.2 Palpitations (principal); R00.0 Tachycardia, unspecified; Z90.49 Acquired absence of other specified parts of digestive tract; Z90.710 Acquired absence of both cervix and uterus; Z98.890 Other specified postprocedural states; Z88.5 Allergy status to narcotic agent; Z88.1 Allergy status to other antibiotic agents; Z79.899 Other long term (current) drug therapy
CPT/HCPCS: 36415; 71045; 80053; 83735; 83880; 84484; 85025; 93005; 96374; 99284; J3010

== ENCOUNTER 2019-05-05 18:24 | Emergency (ER) | payer MEDICARE, MEDICAID ==
[~2019-05-05] VITALS: Ht 152.4 cm; Wt 40.0 kg
[2019-05-05] MEDS ORDERED: metoclopramide 5 mg/ml inj IV ONE (19:20)
[2019-05-05] MEDS ORDERED: normal saline 1000ML IV soln IVB ONE (19:20)
[2019-05-05 19:39] LABS: BASOPHILS % (AUTO) 0.3 % (0-1); EOSINOPHILS % (AUTO) 0 % (0-6); HEMOGLOBIN 12.3 g/dl (12.0-16.0); LYMPHOCYTES # (AUTO) 0.9 X10'3 (1.1-4.8); LYMPHOCYTES % (AUTO) 8.5 % (21-51); MEAN CORPUSCULAR HEMOGLOBIN 29.8 PG (27.0-31.0); MEAN CORPUSCULAR HGB CONC 34.1 g/dL (33.0-36.5); MEAN CORPUSCULAR VOLUME 87.3 FL (78-98); MEAN PLATELET VOLUME 7.6 FL (7.4-10.4); MONOCYTES # (AUTO) 0.2 X10'3 (0-0.9); NEUTROPHILS # (AUTO) 9.4 X10'3 (1.8-7.7); NEUTROPHILS % (AUTO) 89.2 % (42-75); PLATELET COUNT 312 X10'3 (140-440); RED BLOOD COUNT 4.12 X10'6 (4.20-5.60); RED CELL DISTRIBUTION WIDTH 16.9 % (11.5-14.5); WHITE BLOOD COUNT 10.5 X10'3 (4.5-11.0)
[2019-05-05 19:53] LABS: ALANINE AMINOTRANSFERASE 16 U/L (12-78); ALBUMIN 2.7 G/DL (3.4-5.0); ALBUMIN/GLOBULIN RATIO 0.9 (1.1-1.5); ALKALINE PHOSPHATASE 91 IU/L (46-116); ANION GAP 5 (8-16); ASPARTATE AMINO TRANSFERASE 16 U/L (10-37); BILIRUBIN,TOTAL 0.2 MG/DL (0.1-1.0); BLOOD UREA NITROGEN 10 MG/DL (7-18); BUN/CREATININE RATIO 16.1 (6.6-38.0); CALCIUM 7.9 MG/DL (8.5-10.1); CHLORIDE 104 MMOL/L (99-107); CREATININE 0.62 MG/DL (0.40-0.90); GLUCOSE 132 MG/DL (70-104); LIPASE < 50 U/L (73-393); POTASSIUM 3.7 MMOL/L (3.5-5.1); SODIUM 137 MMOL/L (135-145); TOTAL CARBON DIOXIDE 27.8 MMOL/L (24-32); TOTAL PROTEIN 5.7 G/DL (6.4-8.2); eGFR > 90 ML/MIN
[2019-05-05 21:35] LABS: CLARITY,URINE CLEAR (Clear); COLOR,URINE YELLOW (Yellow); GLUCOSE, URINE NEGATIVE (Neg); KETONES,URINE NEGATIVE (Neg); LEUKOCYTE ESTERASE ,URINE NEGATIVE (Neg); NITRITES, URINE NEGATIVE (Neg); OCCULT BLOOD,URINE NEGATIVE (Neg); PROTEIN,URINE NEGATIVE (Neg); UROBILINOGEN,URINE 0.2 E.U/dL (0.2-1.0)
[2019-05-05 21:38] LABS: UA COLLECTION TYPE CLN CATCH MIDSTREAM
[2019-05-05] MEDS ORDERED: ONDA4TAB6 PO (22:01)
[2019-05-05 22:26] VITALS: BP 96/48
== END 2019-05-05 22:28 | disposition home or self-care (01) ==
LOC: ER 18:25
DX: K52.9 Noninfective gastroenteritis and colitis, unspecified (principal); C80.1 Malignant (primary) neoplasm, unspecified; Z90.49 Acquired absence of other specified parts of digestive tract; Z90.710 Acquired absence of both cervix and uterus; Z88.5 Allergy status to narcotic agent; Z88.1 Allergy status to other antibiotic agents; Z79.899 Other long term (current) drug therapy
CPT/HCPCS: 36415; 80053; 81003; 83690; 85025; 96361; 96374; 99284; J2765; J7030

== ENCOUNTER 2019-08-08 16:00 | Emergency (ER) | payer MEDICARE, MEDICAID ==
[~2019-08-08] VITALS: Ht 152.4 cm; Wt 38.6 kg
[~2019-08-08 16:00] MED LIST changes: +ONDA4TAB6 PO
[2019-08-08] MEDS ORDERED: LORazepam 2 mg/ml vial IV ONE (16:35)
[2019-08-08] MEDS ORDERED: proCHLORperazine 10 MG/2 ml inj IV ONE (16:35)
[2019-08-08 17:00] LABS: BASOPHILS # (AUTO) 0.1 X10'3 (0-0.2); BASOPHILS % (AUTO) 0.9 % (0-1); EOSINOPHILS % (AUTO) 0.7 % (0-6); HEMATOCRIT 38.2 % (35.0-45.0); HEMOGLOBIN 12.6 g/dl (12.0-16.0); LYMPHOCYTES # (AUTO) 1.3 X10'3 (1.1-4.8); LYMPHOCYTES % (AUTO) 20.8 % (21-51); MEAN CORPUSCULAR HEMOGLOBIN 28.7 PG (27.0-31.0); MEAN PLATELET VOLUME 8.3 FL (7.4-10.4); MONOCYTES # (AUTO) 0.6 X10'3 (0-0.9); MONOCYTES % (AUTO) 9.1 % (2-12); NEUTROPHILS # (AUTO) 4.3 X10'3 (1.8-7.7); NEUTROPHILS % (AUTO) 68.5 % (42-75); PLATELET COUNT 328 X10'3 (140-440); RED BLOOD COUNT 4.39 X10'6 (4.20-5.60); RED CELL DISTRIBUTION WIDTH 15.6 % (11.5-14.5); WHITE BLOOD COUNT 6.3 X10'3 (4.5-11.0)
--- NOTE | 2019-08-08 17:00 | NUR ---
ATTEMPTED IN AND OUT CATH, NO URINE OUT,
[2019-08-08 17:06] LABS: ALANINE AMINOTRANSFERASE 12 U/L (12-78); ALBUMIN 2.4 G/DL (3.4-5.0); ALBUMIN/GLOBULIN RATIO 0.7 (1.1-1.5); ALKALINE PHOSPHATASE 232 IU/L (46-116); ANION GAP 7 (8-16); ASPARTATE AMINO TRANSFERASE 30 U/L (10-37); BILIRUBIN,TOTAL 0.5 MG/DL (0.1-1.0); BLOOD UREA NITROGEN 9 MG/DL (7-18); CALCIUM 8.2 MG/DL (8.5-10.1); CHLORIDE 104 MMOL/L (99-107); CREATININE 0.75 MG/DL (0.40-0.90); GLUCOSE 98 MG/DL (70-104); POTASSIUM 4.2 MMOL/L (3.5-5.1); SODIUM 139 MMOL/L (135-145); TOTAL PROTEIN 5.7 G/DL (6.4-8.2); eGFR 77 ML/MIN
[2019-08-08 18:00] LABS: CLARITY,URINE CLEAR (Clear); COLOR,URINE YELLOW (Yellow); GLUCOSE, URINE NEGATIVE (Neg); KETONES,URINE TRACE mg/dl (Neg); LEUKOCYTE ESTERASE ,URINE MODERATE (Neg); NITRITES, URINE NEGATIVE (Neg); OCCULT BLOOD,URINE NEGATIVE (Neg); PROTEIN,URINE 30 mg/dl (Neg)
[2019-08-08 18:03] LABS: UA COLLECTION TYPE CLN CATCH MIDSTREAM
[2019-08-08 18:05] LABS: BACTERIA,URINE FEW /HPF (Neg); MUCUS STRANDS FEW /LPF (Neg); RBC,URINE 0-2 /HPF (0-2); SQUAMOUS EPITHELIAL CELL,UR FEW /LPF (FEW); TRANSITIONAL EPI CELLS,URINE FEW /HPF
--- NOTE | 2019-08-08 18:39 | NUR ---
PT IS RESTING QUIETLY ON GURNEY, RESP EVEN AND UNLABORED, SISTER IS WAITING OUTSIDE FOR UPDATE
[2019-08-08] MEDS ORDERED: CEPH250T PO (19:03)
[2019-08-08] MEDS ORDERED: scopolamine 1.5mg patch.TD72 TD SCH (19:05)
[2019-08-08 19:33] VITALS: BP 121/73
== END 2019-08-08 19:35 | disposition home or self-care (01) ==
LOC: ER 16:01
DX: R11.2 Nausea with vomiting, unspecified (principal); N39.0 Urinary tract infection, site not specified; R10.31 Right lower quadrant pain; R10.32 Left lower quadrant pain; Z90.49 Acquired absence of other specified parts of digestive tract; Z90.710 Acquired absence of both cervix and uterus; Z85.05 Personal history of malignant neoplasm of liver; Z88.5 Allergy status to narcotic agent; Z79.899 Other long term (current) drug therapy; Z88.1 Allergy status to other antibiotic agents; Z88.8 Allergy status to other drugs, medicaments and biological substances; Z92.21 Personal history of antineoplastic chemotherapy
CPT/HCPCS: 36415; 74176; 80053; 81001; 85025; 85610; 87088; 93005; 96374; 96375; 99285; J0780; J2060